=== PATIENT | male | born 1945 | race American Indian/Alaskan Native ===

== ENCOUNTER 2016-12-06 07:39 | Day surgery (SDC) | payer OTHER, MEDICARE ==
[2016-12-06 07:59] VITALS: BMI 20.3
[2016-12-06] MEDS ORDERED: Indomethacin 50 MG Suppository PR ONE ×2 (09:02→13:05)
[2016-12-06] MEDS ORDERED: Propofol 10 mg/ml Inj (20 ML) ONE (11:30)
[2016-12-06] MEDS ORDERED: Rocuronium 10 mg/ml (5 ml) ONE (11:31)
[2016-12-06] MEDS ORDERED: Midazolam 2 MG/2 ML VIAL ONE (11:31)
[2016-12-06] MEDS ORDERED: Glucagon Recombinant 1 mg Inj ONE (13:10)
[2016-12-06] MEDS ORDERED: Glycopyrrolate 0.2 mg/ml (2ml vial) ONE (13:33)
[2016-12-06] MEDS ORDERED: Neostigmine Methylsulfate 3mg/3ml Syringe IV ONE (13:33)
[2016-12-06 13:56] VITALS: RESP 14; TEMP 98
[2016-12-06] MEDS ORDERED: Sodium Chloride 0.9% 1,000 ML IV SCH (14:00)
[2016-12-06 14:30] VITALS: O2SAT 100
[2016-12-06 15:52] VITALS: BP 126/70; PULSE 60
[2016-12-06] MEDS ORDERED: Iohexol 240 (50 ml) ONE (16:15)
--- NOTE | 2016-12-08 16:53 | RAD ---
PROCEDURE: Fluoroscopy up to 1 hr. HISTORY: ? CBD OBST COMPARISON: None TECHNIQUE: Standard FINDINGS: Submitted images from the current procedure: 2.0 IMPRESSION: Total fluoroscopic time (continuous mode) utilized during the procedure: 2 minutes 10 seconds.
== END 2016-12-06 14:26 | disposition short-term general hospital (02) ==
LOC: ENDO 07:39
PROVIDERS: ATTEND Internal Medicine
DX: C25.9 Malignant neoplasm of pancreas, unspecified (principal); K83.8 Other specified diseases of biliary tract
CPT/HCPCS: 43242; 43274; 74330; 88307; C1876; J1610; J2250; J2405; J2704; J2710; J3010; J7040 ×2; J7120